=== PATIENT | male | born 2000 | race Two or more races ===

== ENCOUNTER 2019-11-23 02:15 | Emergency (ER) | payer OTHER ==
[~2019-11-23] VITALS: Ht 172.7 cm; Wt 74.0 kg
[2019-11-23 02:19] VITALS: BP 126/70
[2019-11-23] MEDS ORDERED: LORazepam 1MG TABLET PO ONE (02:30)
[2019-11-23] MEDS ORDERED: LORazepam 1MG TABLET ONE (02:36)
[2019-11-23] MEDS ORDERED: OMEP-110 PO (02:45)
== END 2019-11-23 03:00 | disposition home or self-care (01) ==
LOC: ED 02:30
DX: F41.9 Anxiety disorder, unspecified (principal); G47.00 Insomnia, unspecified
CPT/HCPCS: 99283